=== PATIENT | female | born 1990 | race Two or more races ===

== ENCOUNTER 2017-01-11 06:51 | Emergency (ER) | payer BC, OTHER ==
[~2017-01-11] VITALS: Ht 167.6 cm; Wt 59.0 kg
[2017-01-11 07:20] LABS: APPEARANCE,URINE CLEAR (CLEAR); BILIRUBIN,URINE NEGATIVE (NEGATIVE); BLOOD, URINE 1+ Ery/uL (NEGATIVE); COLOR,URINE YELLOW (YELLOW); KETONES,URINE NEGATIVE (NEGATIVE); LEUKOCYTE ESTERASE ,URINE NEGATIVE (NEGATIVE); NITRITE, URINE NEGATIVE (NEGATIVE); PH,URINE 5.5 (5.0-8.0); PROTEIN,URINE NEGATIVE (NEGATIVE); UGLUCOSE NEGATIVE (NEGATIVE); UROBILINOGEN,URINE 0.2 EU/dL (0.2)
[2017-01-11 07:24] LABS: BACTERIA,URINE Rare /HPF (None Seen); PREGNANCY TEST URINE QUAL NEGATIVE (NEGATIVE); RBC,URINE 0-2 /HPF (0-2); SQUAMOUS EPITHELIAL CELL,UR 0-2 /HPF (None Seen); WBC,URINE 0-2 /HPF (0-3)
[2017-01-11] MEDS ORDERED: ACETAMINOPHEN ES 500 MG TABLET ONE (07:27)
[2017-01-11] MEDS ORDERED: ACETAMINOPHEN ES 500 MG TABLET PO ONE (07:30)
[2017-01-11 07:43] VITALS: BP 162/102
[2017-01-11] MEDS ORDERED: LIDOCAINE /MPF 1% VIAL 5 ML VIAL ONE (09:50)
[2017-01-11] MEDS ORDERED: CEFTRIAXONE 500 MG VIAL ONE (09:50)
[2017-01-11] MEDS ORDERED: CEFTRIAXONE 1 G VIAL IM ONE (10:00)
[2017-01-13 06:13] LABS: *NEISSERIA GONORRHOEAE NAA Negative (Negative); CHLAMYDIA TRACHOMATIS NAA Negative (Negative)
== END 2017-01-11 10:02 | disposition home or self-care (01) ==
LOC: ER 06:56
DX: R10.2 Pelvic and perineal pain (principal); J45.909 Unspecified asthma, uncomplicated
CPT/HCPCS: 76856; 81001; 84703; 87210; 87491; 87591; 96372; 99285; A4606 ×2; J0696; J3490; Z7610 ×2; 81000-TC